=== PATIENT | male | born 1955 | race Caucasian/White ===

== ENCOUNTER 2017-12-14 06:44 | Day surgery (SDC) | payer OTHER ==
[~2017-12-14] VITALS: Ht 182.9 cm; Wt 98.0 kg
[2017-12-14 07:04] VITALS: BP 156/105
[2017-12-14] MEDS ORDERED: SODIUM CHLORIDE 0.9% 1,000 ML IV SCH (07:11)
[2017-12-14] MEDS ORDERED: INDO50CA PO (07:20)
[2017-12-14] MEDS ORDERED: CARV12.52 PO (07:20)
[2017-12-14] MEDS ORDERED: PRED20TA PO (07:20)
[2017-12-14] MEDS ORDERED: ALLO300T PO (07:20)
[2017-12-14] MEDS ORDERED: LISI-170 PO (07:20)
[2017-12-14] MEDS ORDERED: LIDOCAINE/PF 1%, 30ML ONE (08:13)
[2017-12-14] MEDS ORDERED: FENTANYL PF 100 MCG/2ML ONE (08:13)
[2017-12-14] MEDS ORDERED: ADENOSINE 6 MG/2 ML ONE (08:13)
[2017-12-14] MEDS ORDERED: ISOPROTERENOL 0.2MG/ML, 5ML ONE (08:13)
[2017-12-14] MEDS ORDERED: MIDAZOLAM 1 MG/ML, 5ML ONE (08:13)
[2017-12-14] MEDS ORDERED: INDOMETHACIN 50 MG CAPSULE PO PRN (09:30)
[2017-12-14] MEDS ORDERED: ACETAMINOPHEN 325 MG TABLET PO PRN (09:30)
[2017-12-14] MEDS ORDERED: PREDNISONE 20 MG PO PRN (09:30)
[2017-12-14] MEDS ORDERED: [UNRECOGNIZED DRUG - OTHER] MC SCH (10:00)
[2017-12-14] MEDS ORDERED: AMLO5TAB4 PO (13:57)
[2017-12-14] MEDS ORDERED: ALLOPURINOL 300 MG TABLET PO SCH (21:00)
[2017-12-14] MEDS ORDERED: LISINOPRIL 20 MG TABLET PO SCH (21:00)
== END 2017-12-14 14:31 ==
LOC: CACL 06:44
PROVIDERS: ATTEND Internal Medicine Cardiovascular Disease
DX: I47.1 Supraventricular tachycardia (principal); I10 Essential (primary) hypertension
CPT/HCPCS: 93613; 93621; 93623; 93653; 99156; 99157; C1730; C1766; C1894; C2630; J2250; J3010; J3490; J0153